=== PATIENT | female | born 1975 | race Caucasian/White ===

== ENCOUNTER 2021-07-10 17:27 | Emergency (ER) | payer OTHER ==
[2021-07-10 18:29] LABS: BILIRUBIN NEGATIVE (NEGATIVE); BLOOD 3+ Ery/uL (NEGATIVE); COLOR YELLOW (YELLOW); GLUCOSE (U) 1+ mg/dL (NORMAL); LEUKOCYTES 2+ Leu/uL (NEGATIVE); NITRITE NEGATIVE (NEGATIVE); PROTEIN TRACE (LOW) mg/dL (NEGATIVE); SPECIFIC GRAVITY >=1.030 (1.001-1.030); UROBILINOGEN 0.2 mg/dL (0.2-1.0)
[2021-07-10 18:31] LABS: CLARITY CLOUDY (CLEAR)
[2021-07-10 18:42] LABS: BACTERIA 2+; URINARY RBC TNTC; URINARY WBC TNTC
[2021-07-10 18:43] LABS: CALCIUM OXALATE CRYSTALS MODERATE
[2021-07-10 20:46] LABS: BASOPHIL 0.7 % (0-2); EOSINOPHIL 1.3 % (0-5); HCT 37.9 % (37.0-47.0); HGB 12.8 g/dl (12.5-16.0); LYMPHOCYTE 32.6 % (15-48); MCHC 33.8 g/dL (32.0-36.0); MCV 85.9 fL (78.0-100.0); MONOCYTE 6.9 % (0-12); MPV 10.9 fL (6.0-9.5); NEUTROPHIL 58.1 % (41-80); NRBC 0; PLT 248 K/uL (150-400); RBC 4.41 M/uL (4.20-5.40); RDW 12.8 % (11.5-14.0); WBC 7.1 K/uL (4.0-10.5)
[2021-07-10 20:53] LABS: BUN/CREAT RATIO (CALC) 15.5 RATIO; CREATININE 0.71 mg/dL (0.51-0.95); POTASSIUM 3.8 mmol/L (3.5-5.1)
[2021-07-10] MEDS ORDERED: ZOFRAN4 M1 PO (22:07)
[2021-07-10] MEDS ORDERED: BACTRIM DS TAB1 EACH PO (22:07)
== END 2021-07-10 22:56 | disposition home or self-care (01) ==
LOC: FER 17:27
PROVIDERS: Emergency Medicine; Nurse Practitioner Family
DX: N39.0 Urinary tract infection, site not specified (principal); R31.9 Hematuria, unspecified; Z88.5 Allergy status to narcotic agent; Z88.8 Allergy status to other drugs, medicaments and biological substances
CPT/HCPCS: 36415; 80048; 81001; 85025; 87088; J0696; J1885; J2405; J7030